=== PATIENT | female | born 1975 | race Caucasian/White ===

== ENCOUNTER 2022-02-21 07:11 | Emergency (ER) | payer OTHER ==
[2022-02-21] MEDS ORDERED: BACTROBAN OINT22 GM EXT (07:42)
== END 2022-02-21 07:58 | disposition home or self-care (01) ==
LOC: ER1 07:11
DX: R58 Hemorrhage, not elsewhere classified (principal); J45.909 Unspecified asthma, uncomplicated; F17.290 Nicotine dependence, other tobacco product, uncomplicated
CPT/HCPCS: 99283